=== PATIENT | female | born 1965 | race Hispanic/Latino ===

== ENCOUNTER 2016-09-02 21:01 | Emergency (ER) | payer BC ==
--- NOTE | 2016-09-02 23:53 | ED.PDOC ---
History of Present Illness - General Chief Complaint: Lower Extremity Injury Stated Complaint: rt leg pain/burning Time Seen by Provider: 09/02/16 23:48 Source: patient, RN notes reviewed, Vital Signs reviewed Exam Limitations: no limitations - History of Present Illness Initial Comments: Patient is a 51 y/o female who has a 2 day history of a burning, tight sensation in the back of her right thigh that radiates down into her calf. She denies any injury. She says it feels like "there is no circulation." She denies any back pain. She does have bilateral hip pain continuously. No redness, no swelling. Timing/Duration: getting worse, other - 2 days Severity: severe Improving Factors: nothing Worsening Factors: other - stretching her legs Associated Symptoms: cough Allergies/Adverse Reactions: Allergies NO KNOWN ALLERGY Allergy (Verified 03/02/16 20:46) Home Medications: Ambulatory Orders Lisinopril & Hydrochlorothiazi [Lisinopril/Hctz 10-12.5 mg] 1 tab PO DAILY 03/22 Naproxen [Naprosyn] 500 mg PO BID #30 tab 09/03/16 tiZANidine [Zanaflex] 4 mg PO TID PRN #30 tab 09/03/16 Review of Systems - Review of Systems Constitutional: States: malaise EENTM: States: no symptoms reported Respiratory: States: cough. Denies: short of breath Cardiology: States: no symptoms reported Gastrointestinal/Abdominal: States: no symptoms reported Genitourinary: States: no symptoms reported Musculoskeletal: States: joint pain, muscle pain, muscle stiffness Skin: States: no symptoms reported Neurological: States: no symptoms reported. Denies: numbness, paresthesia Endocrine: States: no symptoms reported Hematologic/Lymphatic: States: no symptoms reported Past Medical History (General) - Patient Medical History Hx Cardiac Disorders: No Hx Congestive Heart Failure: No Hx Hypertension: Yes Hx Diabetes: No Surgical History: cholecystectomy - Vaccination History Hx Tetanus, Diphtheria Vaccination: Yes Hx Influenza Vaccination: No Hx Pneumococcal Vaccination: No - Social History Hx Tobacco Use: No Hx Alcohol Use: No Hx Substance Use: No Hx Depression: Yes - Female History Patient is a Female of Child Bearing Age (10 -59 yrs old): Yes Patient : No Family Medical History - Family History Mother Family History: No Known Living Status: Still Living Physical Exam - Physical Exam General Appearance: Alert, Other - Mild distress Eye Exam: bilateral normal Ears, Nose, Throat: hearing grossly normal, normal ENT inspection Neck: full range of motion, supple Respiratory: no respiratory distress, no accessory muscle use, wheezing Cardiovascular/Chest: normal peripheral pulses, regular rate, rhythm, no edema, no gallop, no murmur Gastrointestinal/Abdominal: normal bowel sounds, non tender, soft, no organomegaly, no pulsatile mass Back Exam: normal inspection, no CVA tenderness, no vertebral tenderness Extremity: normal inspection, no pedal edema, pelvis stable, calf tenderness, other - firmness in back of thigh that is tender to palpation Neurologic: no motor/sensory deficits, alert, normal mood/affect, oriented x 3 Skin Exam: normal color, warm/dry Progress - Results/Orders Results/Orders: 09/02/16 21:56 Temperature 98.1 F Pulse Rate [ 76 Right] Respiratory 18 Rate Blood Pressure 141/89 [Right Arm] Laboratory Results D-Dimer, Quantitative < 200 ng/mL (0-230) 09/02/16 12:05 Departure - Departure Clinical Impression: Hamstring muscle strain Qualifiers: Encounter type: initial encounter Laterality: right Qualifier Code: (S76.311A) Strain of muscle, fascia and tendon of the posterior muscle group at thigh level , right thigh, initial encounter Time of Disposition: 01:50 Disposition: Discharge to Home or Self Care Condition: Excellent Departure Forms: ED Discharge - Pt. Copy, Patient Portal Self Enrollment Instructions: Hamstrings Strain, DI for Hamstring Strain Diet: resume usual diet Referrals: Luana Gonzalez NP [Primary Care Provider] - 1-2 Weeks Prescriptions: Naproxen [Naprosyn] 500 mg PO BID #30 tab tiZANidine [Zanaflex] 4 mg PO TID PRN #30 tab PRN Reason: Muscle Spasms Home Medications: Ambulatory Orders Lisinopril & Hydrochlorothiazi [Lisinopril/Hctz 10-12.5 mg] 1 tab PO DAILY 03/22 Naproxen [Naprosyn] 500 mg PO BID #30 tab 09/03/16 tiZANidine [Zanaflex] 4 mg PO TID PRN #30 tab 09/03/16
[2016-09-03] MEDS ORDERED: ORPHENADRINE CITRATE 30 MG/ML AMP IM ONE (01:18)
[2016-09-03] MEDS ORDERED: KETOROLAC TROMETHAMINE INJ 60 MG/2 ML VIAL IM ONE (01:18)
[2016-09-03 02:05] VITALS: BP 140/82; TEMP 97.8
== END 2016-09-03 02:05 | disposition home or self-care (01) ==
LOC: ER 21:01
DX: S76.911A Strain of unspecified muscles, fascia and tendons at thigh level, right thigh, initial encounter (principal); I10 Essential (primary) hypertension; F32.9 Major depressive disorder, single episode, unspecified; Z79.899 Other long term (current) drug therapy; X58.XXXA Exposure to other specified factors, initial encounter

== ENCOUNTER → 2016-11-06 | Outpatient (CLI) | payer BC | END | disposition home or self-care (01) | LOC: YCFC.O 10:46 | PROVIDERS: ATTEND Nurse Practitioner Family | DX: N39.0 Urinary tract infection, site not specified (principal) ==

== ENCOUNTER 2017-01-15 17:45 | Emergency (ER) | payer BC ==
--- NOTE | 2017-01-15 18:05 | ED.PDOC ---
History of Present Illness - General Chief Complaint: Upper Extremity Injury Stated Complaint: Left wrist pain Time Seen by Provider: 01/15/17 18:01 Source: patient Exam Limitations: no limitations - History of Present Illness Initial Comments: Patient reports injuring her left wrist when she fell on an outstretched hand while jumping on a trampoline 3 days ago. Patient states she thought the injury was minor, however it continues to bother her today. Patient reports she is taking ibuprofen for pain with minimal relief Pain - Upper Extremity: moderate: Wrist, left Method of Injury: fell Improving Factors: immobilization, medication Worsening Factors: movement Allergies/Adverse Reactions: Allergies NO KNOWN ALLERGY Allergy (Verified 03/02/16 20:46) Home Medications: Ambulatory Orders Lisinopril & Hydrochlorothiazi [Lisinopril/Hctz 10-12.5 mg] 1 tab PO DAILY 03/22 Naproxen [Naprosyn] 500 mg PO BID #30 tab 09/03/16 tiZANidine [Zanaflex] 4 mg PO TID PRN #30 tab 09/03/16 Ibuprofen 800 mg PO Q8HR PRN #30 tab 01/15/17 Tramadol-Acetaminophen [Ultracet] 1 - 2 tab PO Q6HR PRN #30 tab 01/15/17 Review of Systems - Review of Systems Constitutional: Denies: chills, fever Musculoskeletal: States: see HPI, joint pain. Denies: back pain, joint swelling Skin: Denies: change in color, lesions Neurological: Denies: numbness, paresthesia Past Medical History (General) - Patient Medical History Hx Cardiac Disorders: No Hx Congestive Heart Failure: No Hx Hypertension: Yes Hx Diabetes: No - Vaccination History Hx Tetanus, Diphtheria Vaccination: Yes Hx Influenza Vaccination: No Hx Pneumococcal Vaccination: No - Social History Hx Tobacco Use: No Hx Alcohol Use: No Hx Substance Use: No Hx Depression: Yes - Female History Patient : No Family Medical History - Family History Mother Family History: No Known Living Status: Still Living Physical Exam - Physical Exam General Appearance: Comfortable, No apparent distress Elbow/Forearm Exam: normal inspection, non-tender, no evidence of injury Wrist Exam: bone tenderness - to the distal left wrist associated with mild swelling, n/v intact distally Hand Exam: normal inspection, non-tender, no evidence of injury Neuro/Tendon: normal sensation, normal motor functions, normal tendon functions Mental Status: alert, oriented x 3 Skin Exam: normal color, warm/dry Progress - EKG/XRAY/CT XRAY: l wrist, negative for fx as per rad Departure - Departure Clinical Impression: Wrist sprain Qualifiers: Encounter type: initial encounter Laterality: left Qualified Code(s): S63.502A - Unspecified sprain of left wrist, initial encounter Time of Disposition: 18:32 Disposition: Discharge to Home or Self Care Condition: Good Instructions: DI for Wrist Sprain Diet: resume usual diet Referrals: Luana Gonzalez NP [Primary Care Provider] - 1-2 Weeks Prescriptions: Tramadol-Acetaminophen [Ultracet] 1 - 2 tab PO Q6HR PRN #30 tab PRN Reason: Pain Ibuprofen 800 mg PO Q8HR PRN #30 tab PRN Reason: Pain Home Medications: Ambulatory Orders Lisinopril & Hydrochlorothiazi [Lisinopril/Hctz 10-12.5 mg] 1 tab PO DAILY 03/22 Naproxen [Naprosyn] 500 mg PO BID #30 tab 09/03/16 tiZANidine [Zanaflex] 4 mg PO TID PRN #30 tab 09/03/16 Ibuprofen 800 mg PO Q8HR PRN #30 tab 01/15/17 Tramadol-Acetaminophen [Ultracet] 1 - 2 tab PO Q6HR PRN #30 tab 01/15/17
--- NOTE | 2017-01-15 18:23 | RAD ---
EXAM DESCRIPTION: Wrist, left 3 Views CLINICAL HISTORY: 51 years ,Female TRAUMA, FALL ON OUTSTRETCHED HAND COMPARISON: None. TECHNIQUE: Three views of the left wrist. FINDINGS: No acute fractures or dislocations are identified. No osseous destructive lesions. IMPRESSION: No acute fractures are identified. If symptoms persist, followup is recommended in 7-10 days. Electronically signed by: Aden Curry MD 01/15/2017 6:23 PM CDT
[2017-01-15 19:03] VITALS: TEMP 98.9
[2017-01-17 07:48] VITALS: BP 111/68; O2SAT 96
== END 2017-01-15 18:45 | disposition home or self-care (01) ==
LOC: ER 17:45
DX: S63.502A Unspecified sprain of left wrist, initial encounter (principal); I10 Essential (primary) hypertension; F32.9 Major depressive disorder, single episode, unspecified; Z79.899 Other long term (current) drug therapy; X58.XXXA Exposure to other specified factors, initial encounter; Y93.44 Activity, trampolining; Y92.9 Unspecified place or not applicable

== ENCOUNTER 2017-05-17 09:05 | Emergency (ER) | payer BC ==
[2017-05-17] MEDS ORDERED: ASPIRIN TABLET 325 MG TAB PO ONE (09:14)
[2017-05-17] MEDS ORDERED: LIDOCAINE VIS-MYLANTA 30 ML UD PO ONE (09:14)
--- NOTE | 2017-05-17 09:33 | RAD ---
EXAM DESCRIPTION: Chest,2 Views CLINICAL HISTORY: 52 years,Female,chest pain COMPARISON: November 10 FINDINGS: There are no consolidations. No effusions. No pneumothoraces. No nodules. Bony elements unremarkable for age. IMPRESSION: Unremarkable chest for age stable Electronically signed by: Mookie Knight MD 05/17/2017 9:32 AM CDT
[2017-05-17] MEDS ORDERED: POTASSIUM CHLORIDE ELIXIR 20 MEQ/15 ML UD PO ONE (09:58)
--- NOTE | 2017-05-17 10:58 | ED.PDOC ---
History of Present Illness - General Chief Complaint: Chest Pain/IN Stated Complaint: Chest discomfort, anxiety Time Seen by Provider: 05/17/17 09:12 Source: patient Exam Limitations: no limitations - History of Present Illness Initial Comments: the patient is a 52-year-old female presenting to the emergency room secondary to a symptom of chest and epigastric discomfort. This started last night and has been fairly constant. It is upper substernal. She does have some diffuse epigastric discomfort to palpation. Mild nausea but no vomiting. No bloody or tarry stools. No obstructive symptoms. No syncope or near syncope. She does have some mild anterior chest wall discomfort palpation. No bruising is noted. No deformity is noted. Lungs are clear. Chest pain is not made worse with movement or exertion. It may be a little worse when she lays back. No syncope, near syncope or palpitations. Of significant note she is currently being treated fora dental infection with amoxicillin andAdvil. Severity: mild Improving Factors: nothing Worsening Factors: nothing Allergies/Adverse Reactions: Allergies NO KNOWN ALLERGY Allergy (Verified 05/17/17 09:21) Home Medications: Ambulatory Orders Lisinopril & Hydrochlorothiazi [Lisinopril/Hctz 10-12.5 mg] 1 tab PO DAILY 03/22 Lisinopril 10 mg PO DAILY #30 tab 05/17/17 Penicillin V Potassium [Penicillin Vk] 500 mg PO DAILY 05/17/17 Review of Systems - Review of Systems Constitutional: States: no symptoms reported EENTM: States: no symptoms reported Respiratory: States: no symptoms reported Cardiology: States: chest pain Gastrointestinal/Abdominal: States: no symptoms reported Genitourinary: States: no symptoms reported Musculoskeletal: States: no symptoms reported Skin: States: no symptoms reported Neurological: States: see HPI, anxiety Endocrine: States: no symptoms reported All other Systems: No Change from Baseline Past Medical History (General) - Patient Medical History Hx Stroke: No Hx Cardiac Disorders: No Hx Congestive Heart Failure: No Hx Hypertension: Yes Hx Diabetes: No Surgical History: cholecystectomy, tonsillectomy - Vaccination History Hx Tetanus, Diphtheria Vaccination: Yes Hx Influenza Vaccination: No Hx Pneumococcal Vaccination: No - Social History Hx Tobacco Use: No Hx Alcohol Use: No Hx Substance Use: No Hx Depression: Yes - Female History Patient is a Female of Child Bearing Age (10 -59 yrs old): No Patient : No Family Medical History - Family History Mother Family History: No Known Living Status: Still Living Physical Exam - Physical Exam General Appearance: Alert, Anxious, No apparent distress Eye Exam: bilateral normal Ears, Nose, Throat: hearing grossly normal, normal ENT inspection, normal pharynx Neck: full range of motion, supple Respiratory: lungs clear, normal breath sounds, no respiratory distress, no accessory muscle use Cardiovascular/Chest: normal peripheral pulses, regular rate, rhythm, no edema Peripheral Pulses: radial,right: 2+, radial,left: 2+, dorsalis pedis,right: 2+, dorsalis pedis,left: 2+ Gastrointestinal/Abdominal: soft, other - mild diffuse epigastric discomfort palpation. No rebound or peritoneal signs. No bruising. No palpable mass. Rectal Exam: deferred Back Exam: normal inspection, no CVA tenderness Extremity: normal range of motion, non-tender, normal inspection, no pedal edema , normal capillary refill Neurologic: data analytics specialist II-XII nml as tested, alert, normal mood/affect, oriented x 3 Skin Exam: normal color, warm/dry Comments: Vital Signs - 24 hr 05/17/17 05/17/17 05/17/17 09:11 09:58 10:38 Temperature 97.9 F Pulse Rate [ 82 71 64 Apical] Respiratory 20 20 20 Rate Blood Pressure 148/92 119/73 134/76 [Left Arm] O2 Sat by Pulse 99 93 L 97 Oximetry Progress - Progress Progress: 05/17/17 10:59 the patient is a 52-year-old female presenting to the emergency room with chest and epigastric discomfort. I believe this is likely due to gastric and esophageal irritation from her antibiotic and anti-inflammatory medications used to treat her dental infection. She needs to clam picker Pepcid and take 20 mg twice daily for the next 2 weeks. Additionally she can clam picker Maalox and use that every few hours as needed. She needs to keep herself well-hydrated. Additionally she was found to have some significant hyponatremia and mild hypokalemia. I'm going to discontinue the diuretic component of her blood pressure medication. She will be written for lisinopril 10 mg daily. She was given a dose of potassium here today. She needs to have her sodium and potassium rechecked in 2 weeks. ER warnings were given. - Results/Orders Results/Orders: Laboratory Tests 05/17/17 05/17/17 05/17/17 09:40 09:40 09:40 WBC 8.6 RBC 5.28 Hgb 15.8 Hct 45.7 MCV 86.5 MCH 29.9 MCHC 34.5 RDW 13.6 Plt Count 282 MPV 9.4 Absolute Neuts (auto) 5.40 Absolute Lymphs (auto) 1.90 Absolute Monos (auto) 0.60 Absolute Eos (auto) 0.60 H Absolute Basos (auto) 0.10 Neutrophils % 63.0 Lymphocytes % 22.1 Monocytes % 7.2 Eosinophils % 7.1 H Basophils % 0.6 ESR PT 12.4 INR 1.100 PTT (SP) 30.6 Sodium 128 L Potassium 3.2 L Chloride 94 L Carbon Dioxide 25 Anion Gap 12.2 BUN 14 Creatinine 0.63 BUN/Creatinine Ratio 22.2 H Random Glucose 122 H Serum Osmolality 258.9 L Calcium 9.7 Total Bilirubin 1.9 H AST 32 ALT 50 Alkaline Phosphatase 79 Creatine Kinase 63 CK-MB (CK-2) 0.9 CK-MB (CK-2) % Not Reportable Troponin I < 0.02 B-Natriuretic Peptide < 5.0 Serum Total Protein 8.5 H Albumin 4.4 Globulin 4.1 H Albumin/Globulin Ratio 1.1 Amylase Lipase 27 05/17/17 05/17/17 09:40 09:40 WBC RBC Hgb Hct MCV MCH MCHC RDW Plt Count MPV Absolute Neuts (auto) Absolute Lymphs (auto) Absolute Monos (auto) Absolute Eos (auto) Absolute Basos (auto) Neutrophils % Lymphocytes % Monocytes % Eosinophils % Basophils % ESR 10 PT INR PTT (SP) Sodium Potassium Chloride Carbon Dioxide Anion Gap BUN Creatinine BUN/Creatinine Ratio Random Glucose Serum Osmolality Calcium Total Bilirubin AST ALT Alkaline Phosphatase Creatine Kinase CK-MB (CK-2) CK-MB (CK-2) % Troponin I B-Natriuretic Peptide Serum Total Protein Albumin Globulin Albumin/Globulin Ratio Amylase 44 Lipase chest x-ray shows no acute abnormalities. EKG shows a normal sinus rhythm with a normal QT interval. No acute ST segment changes concerning for ischemia. [place] is grossly normal. Departure - Departure Clinical Impression: Esophagitis due to drug, Hyponatremia, Hypokalemia Disposition: Discharge to Home or Self Care Condition: Fair Departure Forms: ED Discharge - Pt. Copy, Patient Portal Self Enrollment Instructions: DI for Esophagitis, Hyponatremia-Adult, DI for Hypokalemia Diet: regular diet Activity: increase activity as tolerated Referrals: Luana Gonzalez NP [Primary Care Provider] - 1-2 Weeks Prescriptions: Lisinopril 10 mg PO DAILY #30 tab Home Medications: Ambulatory Orders Lisinopril & Hydrochlorothiazi [Lisinopril/Hctz 10-12.5 mg] 1 tab PO DAILY 03/22 Lisinopril 10 mg PO DAILY #30 tab 05/17/17 Penicillin V Potassium [Penicillin Vk] 500 mg PO DAILY 05/17/17 Additional Instructions: the patient is a 52-year-old female presenting to the emergency room with chest and epigastric discomfort. I believe this is likely due to gastric and esophageal irritation from her antibiotic and anti-inflammatory medications used to treat her dental infection. She needs to clam picker Pepcid and take 20 mg twice daily for the next 2 weeks. Additionally she can clam picker Maalox and use that every few hours as needed. She needs to keep herself well-hydrated. Additionally she was found to have some significant hyponatremia and mild hypokalemia. I'm going to discontinue the diuretic component of her blood pressure medication. She will be written for lisinopril 10 mg daily. She was given a dose of potassium here today. She needs to have her sodium and potassium rechecked in 2 weeks. ER warnings were given.
[2017-05-17 11:16] VITALS: BP 131/84; TEMP 97; O2SAT 96
== END 2017-05-17 11:10 | disposition home or self-care (01) ==
LOC: ER 09:05
DX: K20.8 Other esophagitis (principal); E87.1 Hypo-osmolality and hyponatremia; E87.6 Hypokalemia; I10 Essential (primary) hypertension; F32.9 Major depressive disorder, single episode, unspecified; Z79.899 Other long term (current) drug therapy

== ENCOUNTER → 2017-07-11 | Outpatient (CLI) | payer BC | END | disposition home or self-care (01) | LOC: LAB.O 12:06 | PROVIDERS: ATTEND Nurse Practitioner Family | DX: E04.1 Nontoxic single thyroid nodule (principal); R73.01 Impaired fasting glucose; I10 Essential (primary) hypertension ==

== ENCOUNTER → 2017-08-15 | Outpatient (CLI) | payer BC ==
--- NOTE | 2017-08-15 17:50 | RAD ---
EXAM DESCRIPTION: XR ABDOMEN 1 VIEW (KUB) CLINICAL HISTORY: UNSPECIFIED ABDOMINAL PAIN COMPARISON: January 13, 2016 TECHNIQUE: KUB FINDINGS: There is an unremarkable bowel gas pattern. No obstruction or ileus is evident. No soft tissue masses or unusual calcifications are noted. Age appropriate bony degenerative changes are present. IMPRESSION: Normal examination Electronically signed by: Yousif Najera MD 08/15/2017 5:49 PM [employer]
== END | disposition home or self-care (01) ==
LOC: RAD 15:46
PROVIDERS: ATTEND Nurse Practitioner Family
DX: R10.9 Unspecified abdominal pain (principal)

== ENCOUNTER → 2017-10-03 | Outpatient (CLI) | payer BC | LOC: LAB.O 12:40 | PROVIDERS: ATTEND Nurse Practitioner Family | DX: N93.9 Abnormal uterine and vaginal bleeding, unspecified (principal) ==

== ENCOUNTER → 2017-10-25 | Outpatient (CLI) | payer BC | LOC: YCFC.O 11:54 | PROVIDERS: ATTEND Nurse Practitioner Family | DX: M25.50 Pain in unspecified joint (principal); R60.9 Edema, unspecified ==

== ENCOUNTER 2017-11-13 15:48 | Emergency (ER) | payer BC ==
[2017-11-13 16:01] VITALS: TEMP 99.2
--- NOTE | 2017-11-13 16:04 | ED.PDOC ---
History of Present Illness - General Chief Complaint: General Stated Complaint: weakness in legs,left hand pain Time Seen by Provider: 11/13/17 16:01 Source: patient Exam Limitations: no limitations - History of Present Illness Initial Comments: Vani Castellanos 52 y/o female stated she was at work today and while walking both her legs got shaky ,felt slightly lightheaded and felt pain on her hands which got better here in er.Stated it happened one hour ago.Had also vague epigastric pain intermittently started 4 days ago which went away yesterday w/o medications.She is scheduled to see a Pc Maintenance Technician in December after she had blood work done one of her test showing she might have lupus stating having joint pains/swelling for the last one month. Denies history of fall.She has HTN taking medications for it.Denies recent fever/flu like symptoms,nausea/vomiting ,diarrhea.Took her blood pressure at work bp-159/92 and went to see Md initially but advised to come to ER. Timing/Duration: 1-3 hours Severity: moderate Improving Factors: nothing Worsening Factors: nothing Associated Symptoms: other - see hpi Allergies/Adverse Reactions: Allergies NO KNOWN ALLERGY Allergy (Verified 05/17/17 09:21) Home Medications: Ambulatory Orders Lisinopril & Hydrochlorothiazi [Lisinopril/Hctz 10-12.5 mg] 1 tab PO DAILY 03/22 Lisinopril 10 mg PO DAILY #30 tab 05/17/17 Penicillin V Potassium [Penicillin Vk] 500 mg PO DAILY 05/17/17 Review of Systems - Review of Systems Constitutional: States: no symptoms reported EENTM: States: no symptoms reported Respiratory: States: no symptoms reported Cardiology: States: no symptoms reported Gastrointestinal/Abdominal: States: see HPI, abdominal pain Musculoskeletal: States: no symptoms reported Skin: States: no symptoms reported Neurological: States: see HPI Endocrine: States: no symptoms reported Hematologic/Lymphatic: States: no symptoms reported All other Systems: Reviewed and Negative, No Change from Baseline Past Medical History (General) - Patient Medical History Hx Stroke: No Hx Cardiac Disorders: No Hx Congestive Heart Failure: No Hx Hypertension: Yes Hx Diabetes: No Surgical History: tonsillectomy, other - ,CTS - Vaccination History Hx Tetanus, Diphtheria Vaccination: Yes Hx Influenza Vaccination: No Hx Pneumococcal Vaccination: No - Social History Hx Tobacco Use: No Hx Alcohol Use: No Hx Substance Use: No Hx Depression: Yes Hx Physical Abuse: No Hx Emotional Abuse: No - Female History Hx Last Menstrual Period: 10/29/17 Patient : No Family Medical History - Family History Mother Family History: No Known Living Status: Still Living Hx Family Hypertension: Yes - dad Hx Cardiac Disease: Yes - dad Hx Family Diabetes: Yes - dad Sister Hx Family;Other: Thyroid disease Physical Exam - Physical Exam General Appearance: Alert, Comfortable, No apparent distress, Well Developed, Well Groomed Eye Exam: bilateral normal Ears, Nose, Throat: hearing grossly normal, normal ENT inspection Neck: non-tender, full range of motion, supple Respiratory: chest non-tender, lungs clear, normal breath sounds Cardiovascular/Chest: normal peripheral pulses, regular rate, rhythm, no gallop , no murmur Peripheral Pulses: radial,right: 2+, radial,left: 2+ Gastrointestinal/Abdominal: non tender, soft, no organomegaly Back Exam: no CVA tenderness, no vertebral tenderness Extremity: non-tender, no pedal edema, no calf tenderness Neurologic: no motor/sensory deficits, alert, oriented x 3, other - negative pronator drift;able to walk to the bathroom without assistance with steady gait DTR: 2+: Patellar, left, Patellar, right Skin Exam: normal color, warm/dry Lymphatic: no adenopathy Progress - Progress Progress: 11/13/17 16:31 Vital Signs - 8 hr 11/13/17 15:55 Temperature 99.2 F Pulse Rate [ 64 Left Brachial] Respiratory 20 Rate Blood Pressure 126/74 [Left Arm] O2 Sat by Pulse 99 Oximetry 11/13/17 17:26 she stated feeling better no longer shaky Eplained all her test were fine except for slightly low potassium from her blood pressure pill with diuretics given discharge instruction. - Results/Orders Results/Orders: 11/13/17 16:04 Head [CT] Stat EKG Assessment DAILY 11/13/17 16:15 EKG STAT Laboratory Results - last 24 hr 11/13/17 11/13/17 11/13/17 16:04 16:04 16:07 WBC 9.5 RBC 5.17 Hgb 15.4 Hct 44.5 MCV 86.2 MCH 29.8 MCHC 34.6 RDW 13.1 Plt Count 288 MPV 9.8 Absolute Neuts (auto) 5.80 Absolute Lymphs (auto) 2.90 Absolute Monos (auto) 0.70 Absolute Eos (auto) 0.20 Absolute Basos (auto) 0.10 Neutrophils % 60.4 Lymphocytes % 30.1 Monocytes % 6.8 Eosinophils % 1.8 Basophils % 0.9 Sodium 137 Potassium 3.2 L Chloride 100 L Carbon Dioxide 28 Anion Gap 12.2 BUN 19 H Creatinine 0.70 BUN/Creatinine Ratio 27.1 H Random Glucose 102 Serum Osmolality 276.3 Calcium 10.0 Magnesium 1.9 Total Bilirubin 1.1 H AST 22 ALT 29 Alkaline Phosphatase 63 Creatine Kinase 80 Troponin I C-Reactive Protein 0.5 Serum Total Protein 8.1 Albumin 4.4 Globulin 3.7 H Albumin/Globulin Ratio 1.2 Urine Color Urine Appearance Urine pH Ur Specific [place] Urine Protein Urine Glucose (UA) Urine Ketones Urine Blood Urine Nitrite Urine Bilirubin Urine Urobilinogen Ur Leukocyte Esterase Urine RBC Urine WBC Ur Epithelial Cells Urine Bacteria Urine HCG, Qual Urine Opiates Screen Negative Urine Barbiturates Negative Ur Phencyclidine Scrn Negative U Amphetamin/Meth Scrn Negative U Benzodiazepines Scrn Negative U Cocaine Metab Screen Negative U Cannabinoids Screen Negative 11/13/17 11/13/17 11/13/17 16:16 16:16 16:17 WBC RBC Hgb Hct MCV MCH MCHC RDW Plt Count MPV Absolute Neuts (auto) Absolute Lymphs (auto) Absolute Monos (auto) Absolute Eos (auto) Absolute Basos (auto) Neutrophils % Lymphocytes % Monocytes % Eosinophils % Basophils % Sodium Potassium Chloride Carbon Dioxide Anion Gap BUN Creatinine BUN/Creatinine Ratio Random Glucose Serum Osmolality Calcium Magnesium Total Bilirubin AST ALT Alkaline Phosphatase Creatine Kinase Troponin I < 0.02 C-Reactive Protein Serum Total Protein Albumin Globulin Albumin/Globulin Ratio Urine Color Yellow Urine Appearance Clear Urine pH 5.5 Ur Specific [place] 1.010 Urine Protein Negative Urine Glucose (UA) Negative Urine Ketones Negative Urine Blood Trace-lysed H Urine Nitrite Negative Urine Bilirubin Negative Urine Urobilinogen 0.2 Ur Leukocyte Esterase Negative Urine RBC 1-3 Urine WBC 0-1 Ur Epithelial Cells 3-5 Urine Bacteria 1+ Urine HCG, Qual Negative Urine Opiates Screen Urine Barbiturates Ur Phencyclidine Scrn U Amphetamin/Meth Scrn U Benzodiazepines Scrn U Cocaine Metab Screen U Cannabinoids Screen - EKG/XRAY/CT EKG: Sinus, nonspecific ST T wave Chg Comments: HR-61 ,IRBBB XRAY: chest - no acute abnormality CT Ordered: Yes - head w/o contrast-no acute infarct/hemorrhage Departure - Departure Clinical Impression: Weakness of both lower extremities, Pain, joint, hand, left, Diuretic-induced hypokalemia Abdominal pain Qualifiers: Abdominal location: epigastric Qualified Code(s): R10.13 - Epigastric pain Time of Disposition: 17:17 Disposition: Discharge to Home or Self Care Condition: Good Departure Forms: ED Discharge - Pt. Copy, Patient Portal Self Enrollment Instructions: Increased Potassium Associated with Lower Blood Pressure and Less Stroke Ri, DI for Hypokalemia, Hypokalemia Referrals: Maddy Sorto [employer] [Primary Care Provider] - 1-2 Weeks Home Medications: Ambulatory Orders Lisinopril & Hydrochlorothiazi [Lisinopril/Hctz 10-12.5 mg] 1 tab PO DAILY 03/22 Lisinopril 10 mg PO DAILY #30 tab 05/17/17 Penicillin V Potassium [Penicillin Vk] 500 mg PO DAILY 05/17/17 Additional Instructions: Return to ER as needed;follow up with primary Md 11/19/2017 as needed
--- NOTE | 2017-11-13 16:47 | RAD ---
PROCEDURE: Chest,2 Views CLINICAL HISTORY: weakness INDICATION: Same as above COMPARISON: 05/17/2017 TECHNIQUE: PA and and lateral chest radiographs were obtained. FINDINGS: The lung rodriges are well inflated. There are no discrete airspace infiltrates, pneumothoraces or pleural effusions. The pulmonary vascularity is normal The cardiomediastinal silhouette is unremarkable for patient's age and sex. IMPRESSION: There is no acute pleural-parenchymal process seen in the imaged lung rodriges. Place of interpretation: [facility]. Electronically signed by: Blake Earl MD 11/13/2017 4:47 PM CDT Workstation: [id number]
[2017-11-13] MEDS ORDERED: POTASSIUM CHLORIDE 20 MEQ TAB PO ONE (16:56)
--- NOTE | 2017-11-13 17:10 | CT ---
EXAM: Head CLINICAL INDICATION: 52 year old female with weakness. COMPARISON: None. TECHNIQUE: CT brain without contrast. This exam was performed according to our departmental dose optimization program which includes use of automated exposure control, adjustment of the mA and/or kV according to patient size and/or use of iterative reconstruction technique. FINDINGS: Mild foci of patchy hypoattenuation are present in a subcortical and periventricular deep white matter distribution, nonspecific; however, most likely represent small vessel ischemic disease, age indeterminate. The ventricles, sulci, and cisterns are symmetric and unremarkable. The cunningham-white matter differentiation is preserved. There is no mass effect, midline shift, intra- or extra-axial fluid collection/acute hemorrhage. The osseous structures are unremarkable. The paranasal sinuses and mastoid air cells are clear. IMPRESSION: 1. No acute intracranial abnormalities. Nonspecific, mild white matter change most likely small vessel ischemic disease, age indeterminate. 2. CT is insensitive for early evaluation of acute stroke. If there is clinical concern for acute ischemia, an MRI may be considered. Electronically signed by: Elsa Rosenberg MD 11/13/2017 5:09 PM CDT
[2017-11-13 17:28] VITALS: BP 118/75; O2SAT 97
== END 2017-11-13 17:27 | disposition home or self-care (01) ==
LOC: ER 15:48
DX: M62.81 Muscle weakness (generalized) (principal); M25.542 Pain in joints of left hand; E87.6 Hypokalemia; R10.13 Epigastric pain; I10 Essential (primary) hypertension

== ENCOUNTER → 2018-05-08 | Outpatient (CLI) | payer BC | LOC: LAB.O 12:31 | PROVIDERS: ATTEND Nurse Practitioner Family | DX: M62.81 Muscle weakness (generalized) (principal) ==

== ENCOUNTER 2018-08-07 12:36 | Emergency (ER) | payer BC ==
[2018-08-07 12:56] VITALS: TEMP 98.1
[2018-08-07] MEDS ORDERED: ALUM & MAG HYDROX-SIMETHICONE 30 ML, LIDOCAINE VISCOUS 2% 15 ML PO ONE ×2 (13:02)
[2018-08-07] MEDS ORDERED: ASPIRIN TABLET 325 MG TAB PO ONE (13:02)
[2018-08-07] MEDS ORDERED: ALUM & MAG HYDROX-SIMETHICONE 30 ML UD ONE (13:07)
[2018-08-07] MEDS ORDERED: LIDOCAINE HCL 2% (MOUTH-THROAT) 15 ML UD ONE (13:07)
--- NOTE | 2018-08-07 13:48 | RAD ---
EXAM DESCRIPTION: Chest,2 Views CLINICAL HISTORY: epigastric substernal cp, anxiety COMPARISON: November 13, 2017 FINDINGS: The cardiomediastinal silhouette is unremarkable. There is no airspace consolidation or pleural effusion. The bronchovascular markings are within normal limits, and the lungs are not hyperinflated. There is no pneumothorax or acute fracture. IMPRESSION: Negative exam. Electronically signed by: Kai Ayala MD 08/07/2018 1:46 PM [employer]NET DEVELOPER
[2018-08-07] MEDS ORDERED: PANTOPRAZOLE SODIUM TAB 40 MG PO ONE (14:20)
[2018-08-07] MEDS ORDERED: SUCRALFATE 1 GM/10 ML 1 GM UD PO ONE (14:20)
--- NOTE | 2018-08-07 16:29 | ED.PDOC ---
History of Present Illness - General Chief Complaint: Chest Pain/NE Stated Complaint: chest pain Time Seen by Provider: 08/07/18 12:38 Source: patient Exam Limitations: no limitations - History of Present Illness Initial Comments: the patient is a 53-year-old female presenting to emergency room with substernal and epigastric discomfort present for at least the last 10 days. The patient had a respiratory tract infection 10 days to 2 weeks ago and was put on an antibiotic and steroid. Since that time she's had some intermittent substernal discomfort and epigastric discomfort that feels like heartburn to her. She is not taking any acid reducing medications or Maalox. She has finally finished up the steroid. She reports that she feels nervous. No history of any heart problems. No shortness of breath. No radiation to the arm or the neck. No syncopal or near syncope. No palpitations. No vomiting but questionable nausea. No fever. Symptoms are not made worse with activity. Severity: mild Improving Factors: nothing Worsening Factors: nothing Associated Symptoms: chest pain, loss of appetite Allergies/Adverse Reactions: Allergies NO KNOWN ALLERGY Allergy (Verified 08/07/18 12:56) Home Medications: Ambulatory Orders Lisinopril & Hydrochlorothiazi [Lisinopril/Hctz 10-12.5 mg] 1 tab PO DAILY 03/22 Famotidine [Pepcid Tab] 20 mg PO BID #60 tab 08/07/18 Sucralfate Tab [Carafate Tab] 1 gm PO QID #120 tab 08/07/18 Review of Systems - Review of Systems Constitutional: States: no symptoms reported EENTM: States: no symptoms reported Respiratory: States: no symptoms reported Cardiology: States: chest pain Gastrointestinal/Abdominal: States: abdominal pain, nausea Genitourinary: States: no symptoms reported Musculoskeletal: States: no symptoms reported Skin: States: no symptoms reported Neurological: States: anxiety Endocrine: States: no symptoms reported All other Systems: No Change from Baseline Past Medical History (General) - Patient Medical History Hx Stroke: No Hx Cardiac Disorders: No Hx Congestive Heart Failure: No Hx Hypertension: Yes Hx Diabetes: No Hx Cancer: No Hx Hepatitis C: No Surgical History: cholecystectomy, Hysterectomy - Vaccination History Hx Tetanus, Diphtheria Vaccination: No Hx Influenza Vaccination: No Hx Pneumococcal Vaccination: No Immunizations Up to Date: No - Social History Hx Tobacco Use: No Hx Alcohol Use: No Hx Substance Use: No Hx Substance Use Treatment: No Hx Depression: No Hx Physical Abuse: No Hx Emotional Abuse: No - Female History Hx Last Menstrual Period: 10/29/17 Patient : No Family Medical History - Family History Sister Living Status: Still Living Hx Family;Other: Thyroid disease Mother Family History: No Known Living Status: Still Living Hx Family Hypertension: Yes - dad Hx Cardiac Disease: Yes - dad Hx Family Diabetes: Yes - dad Physical Exam - Physical Exam General Appearance: Alert, Anxious, No apparent distress Eye Exam: bilateral normal Ears, Nose, Throat: hearing grossly normal, normal ENT inspection, normal pharynx Neck: non-tender, full range of motion, supple Respiratory: lungs clear, normal breath sounds, no respiratory distress, no accessory muscle use Cardiovascular/Chest: normal peripheral pulses, regular rate, rhythm, no edema Peripheral Pulses: radial,right: 2+, radial,left: 2+, dorsalis pedis,right: 2+, dorsalis pedis,left: 2+, posterior tibialis,right: 2+, posterior tibialis,left: 2+ Gastrointestinal/Abdominal: soft, other - mild epigastric discomfort palpation Rectal Exam: deferred Back Exam: normal inspection, no CVA tenderness, no vertebral tenderness Extremity: normal range of motion, non-tender, normal inspection, no pedal edema , normal capillary refill Neurologic: sales consulting director II-XII nml as tested, alert, normal mood/affect, oriented x 3 Skin Exam: normal color Comments: Vital Signs - 24 hr 08/07/18 08/07/18 12:52 16:25 Temperature 98.1 F Pulse Rate [ 68 64 monitor] Respiratory 20 20 Rate Blood Pressure 163/79 136/83 [RA] O2 Sat by Pulse 98 95 Oximetry Progress - Progress Progress: 08/07/18 16:30 the patient is a 53-year-old female presenting to the emergency room with epigastric and substernal pain that appears to be due to gastritis and esophagitis. This was likely made worse by the steroid and antibiotic that was required to treat her previous infection. The patient is going to be placed on Carafate for the next month and Pepcid twice daily for the next month. She does need to obtain some Maalox or Mylanta liquid to keep in case of symptoms flare. She needs to eat a bland diet with small frequent meals. She needs to keep herself well hydrated. She needs to follow back up with her primary care doctor early next week. The patient is not without cardiac risk factors, so it would be reasonable for the patient to get set up for something like an exercise tolerance test in the near future. Chest pain today does not appear to be cardiac based upon the workup. ER warnings were given for any worsening. Anxiety may also be contributing a little bit to symptoms. - Results/Orders Results/Orders: EKG shows normal sinus rhythm at 68 bpm. Incomplete right bundle branch block. No ST segment or T-wave changes consistent with acute ischemia. Normal axis. Normal QT interval. Laboratory Tests 08/07/18 08/07/18 08/07/18 13:01 13:01 13:01 WBC 10.7 RBC 4.88 Hgb 14.8 Hct 43.7 MCV 89.7 MCH 30.3 MCHC 33.8 RDW 13.0 Plt Count 279 MPV 9.9 Absolute Neuts (auto) 5.80 Absolute Lymphs (auto) 3.80 H Absolute Monos (auto) 0.80 Absolute Eos (auto) 0.20 Absolute Basos (auto) 0.10 Neutrophils % 54.3 Lymphocytes % 35.4 Monocytes % 7.0 Eosinophils % 2.2 Basophils % 1.1 PT 10.0 INR 1.00 PTT (SP) 24.1 Sodium 137 Potassium 3.4 L Chloride 101 Carbon Dioxide 28 Anion Gap 11.4 L BUN 22 H Creatinine 0.86 BUN/Creatinine Ratio 25.6 H Random Glucose 84 Serum Osmolality 276.3 Calcium 9.2 Magnesium 1.9 Total Bilirubin 0.9 AST 19 ALT 28 Alkaline Phosphatase 66 Creatine Kinase 88 CK-MB (CK-2) 1.1 CK-MB (CK-2) % Not Reportable Troponin I < 0.02 B-Natriuretic Peptide 26.1 Serum Total Protein 7.1 Albumin 3.8 Globulin 3.3 Albumin/Globulin Ratio 1.2 Amylase 46 Lipase 26 TSH 1.57 Urine Color Urine Appearance Urine pH Ur Specific [place] Urine Protein Urine Glucose (UA) Urine Ketones Urine Blood Urine Nitrite Urine Bilirubin Urine Urobilinogen Ur Leukocyte Esterase Urine RBC Urine WBC Ur Epithelial Cells Amorphous Sediment Urine Bacteria Urine HCG, Qual 08/07/18 08/07/18 15:40 15:40 WBC RBC Hgb Hct MCV MCH MCHC RDW Plt Count MPV Absolute Neuts (auto) Absolute Lymphs (auto) Absolute Monos (auto) Absolute Eos (auto) Absolute Basos (auto) Neutrophils % Lymphocytes % Monocytes % Eosinophils % Basophils % PT INR PTT (SP) Sodium Potassium Chloride Carbon Dioxide Anion Gap BUN Creatinine BUN/Creatinine Ratio Random Glucose Serum Osmolality Calcium Magnesium Total Bilirubin AST ALT Alkaline Phosphatase Creatine Kinase CK-MB (CK-2) CK-MB (CK-2) % Troponin I B-Natriuretic Peptide Serum Total Protein Albumin Globulin Albumin/Globulin Ratio Amylase Lipase TSH Urine Color Yellow Urine Appearance Clear Urine pH 5.5 Ur Specific [place] 1.010 Urine Protein Negative Urine Glucose (UA) Negative Urine Ketones Negative Urine Blood Negative Urine Nitrite Negative Urine Bilirubin Negative Urine Urobilinogen 0.2 Ur Leukocyte Esterase Negative Urine RBC 0 Urine WBC 0 Ur Epithelial Cells 1-3 Amorphous Sediment 1+ Urine Bacteria 0 Urine HCG, Qual Negative two-view chest x-ray is within normal limits. Departure - Departure Clinical Impression: Esophagitis Disposition: Discharge to Home or Self Care Condition: Fair Departure Forms: ED Discharge - Pt. Copy, Patient Portal Self Enrollment Instructions: Acid Reflux (Gastroesophageal Reflux Disease), Adult (DC) Diet: bland diet Activity: increase activity as tolerated Referrals: Luana Gonzalez NP [Primary Care Provider] - 1-2 Weeks Prescriptions: Famotidine [Pepcid Tab] 20 mg PO BID #60 tab Sucralfate Tab [Carafate Tab] 1 gm PO QID #120 tab Home Medications: Ambulatory Orders Lisinopril & Hydrochlorothiazi [Lisinopril/Hctz 10-12.5 mg] 1 tab PO DAILY 03/22 Famotidine [Pepcid Tab] 20 mg PO BID #60 tab 08/07/18 Sucralfate Tab [Carafate Tab] 1 gm PO QID #120 tab 08/07/18 Additional Instructions: the patient is a 53-year-old female presenting to the emergency room with epigastric and substernal pain that appears to be due to gastritis and esophagitis. This was likely made worse by the steroid and antibiotic that was required to treat her previous infection. The patient is going to be placed on Carafate for the next month and Pepcid twice daily for the next month. She does need to obtain some Maalox or Mylanta liquid to keep in case of symptoms flare. She needs to eat a bland diet with small frequent meals. She needs to keep herself well hydrated. She needs to follow back up with her primary care doctor early next week. The patient is not without cardiac risk factors, so it would be reasonable for the patient to get set up for something like an exercise tolerance test in the near future. Chest pain today does not appear to be cardiac based upon the workup. ER warnings were given for any worsening. Anxiety may also be contributing a little bit to symptoms.
[2018-08-07 16:42] VITALS: BP 155/79; O2SAT 96
== END 2018-08-07 16:40 | disposition home or self-care (01) ==
LOC: ER 12:36
DX: K20.9 Esophagitis, unspecified (principal); R07.2 Precordial pain; I10 Essential (primary) hypertension; Z90.49 Acquired absence of other specified parts of digestive tract; Z79.899 Other long term (current) drug therapy

== ENCOUNTER 2019-11-13 | Emergency (ER) | payer BC | END 2019-11-13 20:55 | disposition home or self-care (01) | DX: R10.84 Generalized abdominal pain (principal); I10 Essential (primary) hypertension; Z90.49 Acquired absence of other specified parts of digestive tract | CPT/HCPCS: 36415; 74177; 80053; 81001; 83605; 83690; 85025; 85610; 85730; J7030 ==